=== PATIENT | male | born 1995 | race Caucasian/White ===

== ENCOUNTER 2017-04-29 11:48 | Emergency (ER) | payer BC ==
[~2017-04-29] VITALS: Ht 182.9 cm; Wt 88.9 kg
[2017-04-29 11:54] VITALS: TEMP 36.8; Ht 182.9 cm; Wt 88.9 kg
--- NOTE | 2017-04-29 12:24 | EMERGENCY ROOM VISIT NOTE ---
History Report prepared by Clau: Sugey Montiel Under the Supervision of: Dr. Thuan St M.D. First contact with patient: 12:12 Chief Complaint: CHEST PAIN Stated Complaint: CHEST AND ARM PAIN X 1 WK History of Present Illness The patient is a 21 year old white male with no past medical history who presents to the ED with a cc of intermittent sharp chest pain beginning 1 week ago. The patient states that he has been having pain under his rib cage that comes and goes and lasts 1 minute during an episode. He reports that he has right arm pain and occasional leg pain. 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 Pt states laying down at night worsens his pain. Positive increased belching, right arm pain, leg pain. Negative recent trauma, history of reflux, nausea, vomiting, eating or drinking changes, leg swelling, recent travel, shortness of breath, rash, hematochezia, drug use. He notes that his dad has factor 5 and he has a history of blood clots but the patient has not been tested. Source of History: patient Onset: 1 week ago Position: chest Quality: sharp Timing: intermittent Modifying Factors (Worsening): other (laying down) Associated Symptoms: No SOB, No nausea, No vomiting, No rash Note: Positive increased belching, right arm pain, leg pain. Negative recent trauma, history of reflux,eating or drinking changes, leg swelling, recent travel, hematochezia, drug use. Review of Systems See HPI for pertinent positives and negatives. A total of ten systems were reviewed and were otherwise negative. Past Medical & Surgical Medical Problems: (1) No Known Active Medical Problems Family History No pertinent family history stated. Social History Smoking Status: Former Smoker Marital Status: single Housing Status: lives with roommate Occupation Status: [employer] Current/Historical Medications No Active Prescriptions or Reported Meds Allergies Coded Allergies: Methocarbamol (Unverified Adverse Reaction, Unknown, CHEST TIGHTENS, 04/29) Physical Exam Vital Signs Date Time Temp Pulse Resp B/P (MAP) Pulse Ox O2 Delivery O2 Flow Rate FiO2 04/29/17 14:48 88 16 115/72 98 04/29/17 13:45 72 18 115/76 98 Room Air 04/29/17 12:08 85 04/29/17 12:00 98 Room Air 04/29/17 11:54 36.8 88 18 135/85 97 Room Air Physical Exam GENERAL: Awake, alert, well-appearing, NAD HENT: Normocephalic, atraumatic. EYES: Normal conjunctiva. Sclera non-icteric. NECK: Supple. No nuchal rigidity. FROM. RESPIRATORY: CTAB, no rhonchi, wheezing, crackles CARDIAC: RRR, no MRG ABDOMEN: Soft, NTND, BS+ MSK: No chest wall TTP, no LE edema NEURO: GCS 15, CN 2-12 intact, moves all 4s on command SKIN: No rash or jaundice noted. Medical Decision & Procedures ER Provider Diagnostic Interpretation: X-ray: Per my interpretation, radiologist review. CHEST ONE VIEW PORTABLE FINDINGS: The lungs are clear. Cardiac silhouette is normal in size. No pleural effusions. No pneumothorax. IMPRESSION: No acute process. Electronically signed by: Rodolfo Fry M.D. 04/29/2017 12:59 PM Dictated Date/Time: 04/29/2017 12:57 PM Laboratory Results 04/29/17 12:05 Red Blood Count 5.03, Mean Corpuscular Volume 91.8, Mean Corpuscular Hemoglobin 33.6, Mean Corpuscular Hemoglobin Concent 36.6, Mean Platelet Volume 10.2, Neutrophils (%) (Auto) 42.7, Lymphocytes (%) (Auto) 42.8, Monocytes (%) (Auto) 12.4, Eosinophils (%) (Auto) 0.6, Basophils (%) (Auto) 0.3, Neutrophils # (Auto ) 2.92, Lymphocytes # (Auto) 2.92, Monocytes # (Auto) 0.85, Eosinophils # (Auto ) 0.04, Basophils # (Auto) 0.02 04/29/17 12:05 Test 04/29/17 12:05 04/29/17 12:48 White Blood Count 6.83 K/uL (4.8-10.8) Red Blood Count 5.03 M/uL (4.7-6.1) Hemoglobin 16.9 g/dL (14.0-18.0) Hematocrit 46.2 % (42-52) Mean Corpuscular Volume 91.8 fL (80-100) Mean Corpuscular Hemoglobin 33.6 pg (25-34) Mean Corpuscular Hemoglobin Concent 36.6 g/dl (32-36) Platelet Count 251 K/uL (130-400) Mean Platelet Volume 10.2 fL (7.4-10.4) Neutrophils (%) (Auto) 42.7 % Lymphocytes (%) (Auto) 42.8 % Monocytes (%) (Auto) 12.4 % Eosinophils (%) (Auto) 0.6 % Basophils (%) (Auto) 0.3 % Neutrophils # (Auto) 2.92 K/uL (1.4-6.5) Lymphocytes # (Auto) 2.92 K/uL (1.2-3.4) Monocytes # (Auto) 0.85 K/uL (0.11-0.59) Eosinophils # (Auto) 0.04 K/uL (0-0.5) Basophils # (Auto) 0.02 K/uL (0-0.2) RDW Standard Deviation 40.2 fL (36.4-46.3) RDW Coefficient of Variation 11.9 % (11.5-14.5) Immature Granulocyte % (Auto) 1.2 % Immature Granulocyte # (Auto) 0.08 K/uL (0.00-0.02) Anion Gap 8.0 mmol/L (3-11) Est Creatinine Clear Calc Drug Dose 99.4 ml/min Estimated GFR () 91.2 Estimated GFR (Non- 78.7 BUN/Creatinine Ratio 12.6 (10-20) Calcium Level 9.0 mg/dl (8.5-10.1) Troponin I < 0.015 ng/ml (0-0.045) Bedside D-Dimer 86 ng/mlFEU (0-450) Laboratory results reviewed by me Medications Administered Medications (Trade) Dose Ordered Sig/Laura Route Start Time Stop Time Status Last Admin Dose Admin Acetaminophen (Tylenol Tab) 1,000 mg NOW STAT PO 04/29/17 12:38 04/29/17 12:40 DC 04/29/17 12:38 1,000 MG Sodium Chloride 1,000 ml @ 999 mls/hr Q1H1M STAT IV 04/29/17 12:38 04/29/17 13:38 DC 04/29/17 12:38 999 MLS/HR Lidocaine HCl (Viscous Lidocaine 2% Soln) 20 ml STK-MED ONCE .ROUTE 04/29/17 12:51 04/29/17 12:52 DC 04/29/17 12:51 10 ML Al Hydroxide/Mg Hydroxide (Maalox Susp) 30 ml STK-MED ONCE .ROUTE 04/29/17 12:51 04/29/17 12:52 DC 04/29/17 12:51 30 ML ECG Indication: chest pain Rate (beats per minute): 82 Rhythm: normal sinus Findings: T-wave inversion (single isolated at L3), other (normal intervals, normal axis, no other STS changes or T wave inversions) ED Course 1212: The patient was evaluated in room C6. A complete history and physical exam was performed. 1238: Sodium Chloride 1000 ml @ 999 mls/hr IV, Tylenol Tab 1000mg PO, GI Cocktail 24ml PO. 1545: I reevaluated the patient. Discussed results and discharge instructions: He verbalized understanding and agreement. The patient is ready for discharge. Medical Decision The patient is a 21 year old white male with no past medical history who presents to the ED with a cc of intermittent sharp chest pain beginning 1 week ago. Differential diagnosis: Etiologies such as cardiac ischemia, aortic dissection, pulmonary embolism, pneumonia, pneumothorax, musculoskeletal, infections, pericarditis, myocarditis , esophageal rupture, gastrointestinal, as well as others were entertained. Patient was seen and evaluated at the bedside. Patient did have some intermittent chest and arm pain. Patient had no focal signs of trauma. Patient did not describe any infectious symptoms. Patient had a negative chest x-ray. Patient had a negative troponin as well as a d-dimer that was not elevated less likely PE. Patient did have a family history of factor V Leiden and thus was told to follow up as an outpatient to determine whether or not he had the same genetic abnormality. Patient's EKG troponin negative less likely to be ACS. No arrhythmia noted. Patient was feeling mildly improved. Patient was given strict follow-up, discharge, and return precautions. Patient was also given a list of primary care providers and told to begin follow-up for possible factor V Leiden testing. Patient agreed with plan of care was discharged home. Medication Reconcilliation Current Medication List: was personally reviewed by me Blood Pressure Screening Patient's blood pressure: Elevated blood pressure Blood pressure disposition: Elevated BP felt to be situational Impression Primary Impression: Chest pain Scribe Attestation The scribe's documentation has been prepared under my direction and personally reviewed by me in its entirety. I confirm that the note above accurately reflects all work, treatment, procedures, and medical decision making performed by me. Departure Information Dispostion Home / Self-Care Prescriptions No Active Prescriptions or Reported Meds Referrals No Doctor, Assigned (PCP) Patient Instructions Chest Pain - [facility], My [facility] Additional Instructions Please return to the emergency department if you have worsening or recurrent symptoms not amenable to at-home treatment. Please call for a follow-up appointment with her primary care physician. Please take your medications as prescribed. If you have other concerns and/or complaints please feel free to also call your primary care physician's office or return the ED for further evaluation, management, and treatment. You may take 600 mg Ibuprofen every 6 hours as needed for pain with food for no more than 2 consecutive days. You may take tylenol 1000mg every 6 hours as needed for pain. You may take motrin and tylenol separately or at the same time. You have been examined and treated today on an emergency basis only. This is not a substitute for, or an effort to provide, complete comprehensive medical care. It is impossible to recognize and treat all injuries or illnesses in a single emergency department visit. It is therefore important that you follow up closely with [facility]. Call as soon as possible for an appointment. Thank you for your time and consideration. I look forward to speaking with you again soon. Please don't hesitate to call us if you have any questions. Problem Qualifiers Primary Impression: Chest pain Chest pain type: unspecified Qualified Codes: R07.9 - Chest pain, unspecified
[2017-04-29] MEDS ORDERED: SODIUM CHLORIDE 0.9% 1000ML 1,000 ML IV STA (12:38)
[2017-04-29] MEDS ORDERED: ACETAMINOPHEN 500 MG TAB PO STA (12:38)
[2017-04-29] MEDS ORDERED: GI COCKTAIL PO STA (12:38)
[2017-04-29 12:49] LABS: BASO % 0.3 %; BASO ABS # 0.02 K/uL (0-0.2); COMPLETE YES; EOS % 0.6 %; HEMATOCRIT 46.2 % (42-52); IG% 1.2 %; LYMPH % 42.8 %; LYMPH ABS # 2.92 K/uL (1.2-3.4); MEAN CELL VOLUME 91.8 fL (80-100); MEAN CORPUSCULAR HEMOGLOBIN 33.6 pg (25-34); MEAN CORPUSCULAR HGB CONC 36.6 g/dl (32-36); MEAN PLATELET VOLUME 10.2 fL (7.4-10.4); MONO % 12.4 %; NEUT % 42.7 %; PLATELET COUNT 251 K/uL (130-400); RED BLOOD COUNT 5.03 M/uL (4.7-6.1); WHITE BLOOD COUNT 6.83 K/uL (4.8-10.8)
[2017-04-29] MEDS ORDERED: ALUMINUM/MAGNESIUM SUSP 30 ML UDC ONE (12:51)
[2017-04-29] MEDS ORDERED: LIDOCAINE HCL 2% VISC SOLN 20 ML UDC ONE (12:51)
--- NOTE | 2017-04-29 13:00 | DIAGNOSTIC IMAGING REPORT ---
CHEST ONE VIEW PORTABLE HISTORY: Atypical CHEST PAIN COMPARISON: None. FINDINGS: The lungs are clear. Cardiac silhouette is normal in size. No pleural effusions. No pneumothorax. IMPRESSION: No acute process. Electronically signed by: Rodolfo Fry M.D. 04/29/2017 12:59 PM Dictated Date/Time: 04/29/2017 12:57 PM
[2017-04-29 13:05] LABS: BLOOD UREA NITROGEN 16 mg/dl (7-18); BUN/CREATININE RATIO 12.6 (10-20); CARBON DIOXIDE 26 mmol/L (21-32); CHLORIDE 104 mmol/L (98-107); CREATININE 1.29 mg/dl (0.60-1.40); GLUCOSE 95 mg/dl (70-99); POTASSIUM 3.8 mmol/L (3.5-5.1); SODIUM 138 mmol/L (136-145)
[2017-04-29 14:48] VITALS: BP 115/72; PULSE 88; O2SAT 98
== END 2017-04-29 14:49 | disposition home or self-care (01) ==
LOC: C.EDB 11:50 → C.EDC 14:49
DX: R07.9 Chest pain, unspecified (principal); Z87.891 Personal history of nicotine dependence; Z83.2 Family history of diseases of the blood and blood-forming organs and certain disorders involving the immune mechanism